=== PATIENT | male | born 1995 | race Caucasian/White ===

== ENCOUNTER 2018-02-04 08:11 | Emergency (ER) | payer OTHER, SELFPAY ==
[2018-02-04] MEDS ORDERED: Bacitracin Zinc 1 Packet ONE (08:50)
== END 2018-02-04 09:05 | disposition home or self-care (01) ==
LOC: ERS 08:11
DX: S02.2XXA Fracture of nasal bones, initial encounter for closed fracture (principal); S67.192A Crushing injury of right middle finger, initial encounter; S61.202A Unspecified open wound of right middle finger without damage to nail, initial encounter; R55 Syncope and collapse; S00.81XA Abrasion of other part of head, initial encounter; W18.30XA Fall on same level, unspecified, initial encounter
CPT/HCPCS: 99283